=== PATIENT | male | born 1990 | race Caucasian/White ===

== ENCOUNTER 2021-01-21 22:08 | Emergency (ER) | payer BC ==
[~2021-01-21 22:08] MED LIST: ENDOCET 5-3251 EACH PO; FLOMAX0.4 MG PO; KEFLEX CAP 500500 MG PO; ONDANSETRON ODT4 MG PO
== END 2021-01-22 00:35 | disposition left against medical advice (07) ==
LOC: ER1 22:08
DX: Z53.21 Procedure and treatment not carried out due to patient leaving prior to being seen by health care provider (principal)

== ENCOUNTER 2021-03-11 22:26 | Emergency (ER) | payer OTHER ==
[2021-03-12] MEDS ORDERED: MEDROL DOSEPAK 24 MG PO (00:21)
[2021-03-12] MEDS ORDERED: NORFLEX 100 MG100 MG PO (00:21)
== END 2021-03-12 00:40 | disposition home or self-care (01) ==
LOC: ER1 22:26
DX: S16.1XXA Strain of muscle, fascia and tendon at neck level, initial encounter (principal); F17.290 Nicotine dependence, other tobacco product, uncomplicated; E78.5 Hyperlipidemia, unspecified; X58.XXXA Exposure to other specified factors, initial encounter
CPT/HCPCS: 72040; 96372; 99283; J1885; J2930

== ENCOUNTER 2021-10-07 14:21 | Emergency (ER) | payer SELFPAY ==
[~2021-10-07 14:21] MED LIST changes: +MEDROL DOSEPAK 24 MG PO; +NORFLEX 100 MG100 MG PO
== END 2021-10-07 19:16 | disposition home or self-care (01) ==
LOC: ER1 14:21
DX: S43.015A Anterior dislocation of left humerus, initial encounter (principal); F17.290 Nicotine dependence, other tobacco product, uncomplicated; I10 Essential (primary) hypertension; W19.XXXA Unspecified fall, initial encounter
CPT/HCPCS: 23650; 71045; 73030; 96374; 96375; 99283; J2270; J2405; J2704